=== PATIENT | female | born 1940 | race Caucasian/White ===

== ENCOUNTER 2023-09-05 17:10 | Emergency (ER) | payer OTHER ==
[~2023-09-05] VITALS: Ht 160 cm; Wt 59.9 kg
[2023-09-05 17:17] VITALS: BP_SYST 158; PULSE 94; RESP 18; TEMP 98.3; O2SAT 96
[2023-09-05] MEDS ORDERED: MELA5TAB21 PO (18:16)
[2023-09-05] MEDS ORDERED: XALEYE OP (18:16)
[2023-09-05] MEDS ORDERED: DOCU-144 PO (18:16)
[2023-09-05] MEDS ORDERED: NOR10 PO (18:16)
[2023-09-05] MEDS ORDERED: SER25 PO (18:16)
[2023-09-05] MEDS ORDERED: MEMA14CA PO (18:16)
[2023-09-05] MEDS ORDERED: PRAV20TA59 PO (18:16)
[2023-09-05] MEDS ORDERED: [UNRECOGNIZED DRUG - CODE] PO (18:16)
[2023-09-05] MEDS ORDERED: CLOT15CR5 TP (18:16)
[2023-09-05] MEDS ORDERED: MIRT-91 PO (18:16)
[2023-09-05] MEDS: cloNIDine HCL 0.1 MG TABLET PO ONE (19:28)
[2023-09-05 19:49] VITALS: BP_SYST 159; PULSE 75; RESP 18; TEMP 98; O2SAT 97
== END 2023-09-05 19:49 | disposition home or self-care (01) ==
LOC: SED 17:10
DX: S00.83XA Contusion of other part of head, initial encounter (principal); I10 Essential (primary) hypertension; W01.0XXA Fall on same level from slipping, tripping and stumbling without subsequent striking against object, initial encounter; Y93.89 Activity, other specified; Y92.89 Other specified places as the place of occurrence of the external cause; Y99.8 Other external cause status
CPT/HCPCS: 70450-TC; 70486; 93005; 99284